=== PATIENT | male | born 1990 | race African-American/Black ===

== ENCOUNTER 2021-07-18 16:33 | Emergency (ER) | payer OTHER ==
[~2021-07-18] VITALS: Ht 170.2 cm; Wt 59.0 kg
[2021-07-18 16:58] VITALS: BP 149/83
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
[2021-07-18] MEDS ORDERED: IBUP-1955 PO (17:51)
--- NOTE | 2021-07-18 18:15 | NUR ---
Patient discharged to home in stable condition with PD. Written and verbal after care instructions given. Patient and PD verbalize understanding of instruction.
== END 2021-07-18 18:16 ==
LOC: ER 16:43
DX: S60.412A Abrasion of right middle finger, initial encounter (principal); M79.641 Pain in right hand; J34.89 Other specified disorders of nose and nasal sinuses; Z98.890 Other specified postprocedural states; Y08.89XA Assault by other specified means, initial encounter; Y93.89 Activity, other specified; Y92.89 Other specified places as the place of occurrence of the external cause; Y99.8 Other external cause status
CPT/HCPCS: 73130; 99283; A6403

== ENCOUNTER 2021-07-19 11:44 | Emergency (ER) | payer OTHER ==
[~2021-07-19] VITALS: Ht 167.6 cm; Wt 59.0 kg
[~2021-07-19 11:44] MED LIST: IBUP-1955 PO
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
--- NOTE | 2021-07-19 12:04 | NUR ---
covid swab collected and sent to lab.
[2021-07-19 12:16] LABS: BASOPHILS % (AUTO) 0.3 % (0.0-2.0); EOSINOPHILS % (AUTO) 0.7 % (0.0-6.0); HEMATOCRIT 42 % (39-51); HEMOGLOBIN 13.8 g/dL (13.5-17.5); LYMPHOCYTES # (AUTO) 1.2 K/uL (0.8-4.8); LYMPHOCYTES % (AUTO) 18.5 % (20.0-44.0); MEAN CORPUSCULAR HGB CONC 33 g/dl (31.0-36.0); MEAN CORPUSCULAR VOLUME 91 fL (80-96); MONOCYTES # (AUTO) 0.8 K/uL (0.1-1.30); MONOCYTES % (AUTO) 12.3 % (2.0-12.0); NEUTROPHILS # (AUTO) 4.5 K/uL (1.8-8.9); NEUTROPHILS % (AUTO) 68.2 % (43.0-81.0); PLATELET COUNT (AUTO) 337 K/uL (150-450); RED BLOOD CELL COUNT(AUTO) 4.63 MIL/uL (4.5-6.0); WHITE BLOOD COUNT (AUTO) 6.6 K/uL (4.3-11.0)
[2021-07-19 12:23] LABS: ALANINE AMINOTRANSFERASE 129 U/L (12-78); ALBUMIN 4.6 g/dL (3.4-5.0); ALKALINE PHOSPHATASE 71 U/L (46-116); ASPARTATE AMINOTRANSFERASE 141 U/L (15-37); BILIRUBIN,DIRECT 0.2 mg/dL (0.0-0.2); BILIRUBIN,TOTAL 0.8 mg/dL (0.2-1.0); CALCIUM, SERUM 9.6 mg/dL (8.5-10.1); CARBON DIOXIDE 29 mmol/L (21-32); CHLORIDE 96 mmol/L (98-107); GLUCOSE 105 mg/dL (74-106); POTASSIUM 4.4 mmol/L (3.5-5.1); SODIUM SERUM 135 mmol/L (136-145); TOTAL PROTEIN, SERUM 8.8 g/dL (6.4-8.2); UREA NITROGEN, BLOOD 21 mg/dL (7-18)
[2021-07-19] MEDS ORDERED: KETOROLAC TROMETHAMINE INJ 30 MG/ML VIAL ONE (13:00)
[2021-07-19] MEDS: KETOROLAC TROMETHAMINE INJ 30 MG/ML VIAL IV ONE (13:05)
--- NOTE | 2021-07-19 13:17 | NUR ---
medically cleared. pt discharged to [facility] in stable condition.
[2021-07-19 13:18] VITALS: BP 136/74
== END 2021-07-19 13:18 ==
LOC: ER 11:46
DX: R07.89 Other chest pain (principal); Z20.822 Contact with and (suspected) exposure to COVID-19
CPT/HCPCS: 36415; 71045; 80048; 80076; 84484; 85025; 87426; 93005; 96374; 99285; C9803; J1885

== ENCOUNTER 2021-12-18 08:02 | Emergency (ER) | payer OTHER ==
[~2021-12-18] VITALS: Ht 167.6 cm; Wt 66.2 kg
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
--- NOTE | 2021-12-18 08:06 | NUR ---
PT SEEN AND EXAMINED BY .
[2021-12-18] MEDS ORDERED: LORAZEPAM 1 MG TABLET PO ONE (08:30)
[2021-12-18] MEDS ORDERED: OLANZAPINE 5 MG TABLET PO ONE (08:30)
[2021-12-18] MEDS ORDERED: LORAZEPAM 1 MG TABLET ONE (08:32)
[2021-12-18] MEDS ORDERED: OLANZAPINE 5 MG TABLET ONE (08:32)
--- NOTE | 2021-12-18 08:36 | NUR ---
ER PHLEB AT BEDSIDE FOR BLOOD DRAW.
[2021-12-18 08:58] LABS: BASOPHILS % (AUTO) 0.2 % (0.0-2.0); EOSINOPHILS % (AUTO) 0.1 % (0.0-6.0); HEMATOCRIT 39 % (39-51); HEMOGLOBIN 12.7 g/dL (13.5-17.5); LYMPHOCYTES # (AUTO) 0.6 K/uL (0.8-4.8); LYMPHOCYTES % (AUTO) 9.7 % (20.0-44.0); MEAN CORPUSCULAR HGB CONC 33 g/dl (31.0-36.0); MEAN CORPUSCULAR VOLUME 89 fL (80-96); MONOCYTES # (AUTO) 0.7 K/uL (0.1-1.30); MONOCYTES % (AUTO) 11.3 % (2.0-12.0); NEUTROPHILS % (AUTO) 78.7 % (43.0-81.0); PLATELET COUNT (AUTO) 293 K/uL (150-450); RED BLOOD CELL COUNT(AUTO) 4.37 MIL/uL (4.5-6.0); WHITE BLOOD COUNT (AUTO) 6.3 K/uL (4.3-11.0)
[2021-12-18 09:06] LABS: ALBUMIN 4.8 g/dL (3.4-5.0); BILIRUBIN,DIRECT 0.1 mg/dL (0.0-0.2); BILIRUBIN,TOTAL 0.6 mg/dL (0.2-1.0); CALCIUM, SERUM 9.7 mg/dL (8.5-10.1); CREATININE 1.4 mg/dL (0.6-1.3); TOTAL PROTEIN, SERUM 8.7 g/dL (6.4-8.2)
--- NOTE | 2021-12-18 09:18 | NUR ---
URINE SPECIMEN COLLECTED AND SENT TO LAB.
[2021-12-18 09:59] LABS: BILIRUBIN,URINE SMALL (NEGATIVE); COLOR,URINE YELLOW (YELLOW); LEUKOCYTE ESTERASE ,URINE NEGATIVE (NEGATIVE); NITRITE, URINE NEGATIVE (NEGATIVE); PROTEIN,URINE 100 mg/dl (NEGATIVE); UGLUCOSE NEGATIVE (NEGATIVE)
[2021-12-18 11:04] LABS: BACTERIA,URINE Few /HPF (None Seen); MUCUS,URINE Moderate /LPF (None Seen); SQUAMOUS EPITHELIAL CELL,UR Few /HPF (None Seen)
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
[2021-12-18] MEDS ORDERED: OLAN5TAB3 PO (11:29)
[2021-12-18] MEDS ORDERED: CEPH500C2 PO (11:29)
--- NOTE | 2021-12-18 11:47 | NUR ---
PATIENT NOT IN HIS BED FOR DISCHARGE INSTRUCTIONS.
[2021-12-18 11:49] VITALS: BP 129/80
== END 2021-12-18 11:49 | disposition home or self-care (01) ==
LOC: ER 08:03
DX: F19.921 Other psychoactive substance use, unspecified with intoxication with delirium (principal); F15.10 Other stimulant abuse, uncomplicated; F12.10 Cannabis abuse, uncomplicated; N39.0 Urinary tract infection, site not specified; R74.01 Elevation of levels of liver transaminase levels; N28.9 Disorder of kidney and ureter, unspecified; Z98.890 Other specified postprocedural states
CPT/HCPCS: 36415; 80048-TC; 80076-TC; 81001; 85025-TC; 87086-TC; G0480

== ENCOUNTER 2022-03-14 01:57 | Emergency (ER) | payer OTHER ==
[~2022-03-14] VITALS: Ht 160 cm; Wt 59.0 kg
[~2022-03-14 01:57] MED LIST changes: +CEPH500C2 PO; +OLAN5TAB3 PO
[2022-03-14] MEDS ORDERED: MORPHINE SULFATE INJ 4 MG/ML DISP.SYRIN ONE (02:25)
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
[2022-03-14] MEDS ORDERED: MORPHINE SULFATE INJ 2 MG/ML DISP.SYRIN IM ONE (02:30)
--- NOTE | 2022-03-14 02:30 | NUR ---
PT TAKEN TO CT VIA [facility]
--- NOTE | 2022-03-14 02:42 | NUR ---
PT RETURNED FROM CT
[2022-03-14] MEDS ORDERED: AMOX-430 PO (04:38)
[2022-03-14] MEDS ORDERED: HYDR-4275 PO (04:38)
[2022-03-14 04:46] VITALS: BP 131/82
--- NOTE | 2022-03-14 04:46 | NUR ---
Patient discharged to home in stable condition. Written and verbal after care instructions given. Patient verbalizes understanding of instruction.
[2022-03-14] MEDS ORDERED: AMOX/CLAVULANATE 875 MG TABLET ONE (04:56)
[2022-03-14] MEDS ORDERED: AMOX/CLAVULANATE 875 MG TABLET PO ONE (05:00)
[2022-03-14] MEDS ORDERED: HYDR-3972 PO (19:17)
== END 2022-03-14 04:50 | disposition home or self-care (01) ==
LOC: ER 02:10
DX: S02.2XXA Fracture of nasal bones, initial encounter for closed fracture (principal); S02.32XA Fracture of orbital floor, left side, initial encounter for closed fracture; S60.221A Contusion of right hand, initial encounter; Z79.899 Other long term (current) drug therapy; Y04.2XXA Assault by strike against or bumped into by another person, initial encounter; Y93.89 Activity, other specified; Y92.89 Other specified places as the place of occurrence of the external cause; Y99.8 Other external cause status
CPT/HCPCS: 70486; 73130; 96372; 99284; J2270